=== PATIENT | female | born 1995 | race Caucasian/White ===

== ENCOUNTER → 2018-03-31 | Outpatient (REF) | payer OTHER | LOC: M LAB REF 13:50 | DX: Z12.4 Encounter for screening for malignant neoplasm of cervix (principal) ==

== ENCOUNTER → 2018-08-27 | Outpatient (REF) | payer OTHER ==
[2018-08-27 16:58] LABS: FREE T4 0.86 NG/DL (0.76-1.46); THYROID STIMULATING HORMONE 0.713 uIU/ML (0.358-3.740)
[2018-08-27 17:12] LABS: LUTEINIZING HORMONE 0.5 mIU/mL
[2018-08-27 17:13] LABS: ESTRADIOL 27.6 PG/ML; FOLLICLE STIMULATING HORMONE 5.3 mIU/mL
[2018-08-27 17:59] LABS: HCG, SERUM QUALITATIVE NEGATIVE (NEGATIVE)
[2018-08-27 18:16] LABS: CHLAMYDIA DNA AMPLIFICATION NEGATIVE (NEGATIVE); GC DNA AMPLIFICATION NEGATIVE (NEGATIVE)
[2018-08-28 10:35] LABS: HIV 1&2 SCREEN CENTAUR NEGATIVE (NEGATIVE)
== END ==
LOC: M SFHCLERA 10:20
PROVIDERS: ATTEND Family Medicine
DX: Z11.3 Encounter for screening for infections with a predominantly sexual mode of transmission (principal); N91.1 Secondary amenorrhea

== ENCOUNTER → 2019-06-29 | Outpatient (REF) | payer OTHER ==
[2019-06-29 12:46] LABS: FREE T4 0.88 NG/DL (0.76-1.46)
[2019-06-29 12:48] LABS: ESTRADIOL < 19.0 PG/ML; LUTEINIZING HORMONE 1.6 mIU/mL; PROLACTIN 7.6 NG/ML
[2019-06-29 12:49] LABS: FOLLICLE STIMULATING HORMONE 3.9 mIU/mL
== END ==
LOC: M SFHCLERA 10:02
PROVIDERS: ATTEND Family Medicine
DX: E55.9 Vitamin D deficiency, unspecified (principal); N91.2 Amenorrhea, unspecified

== ENCOUNTER → 2019-09-08 | Outpatient (CLI) | payer BC, OTHER | LOC: M LABSMTC 10:52 | PROVIDERS: ATTEND Family Medicine | DX: Z11.59 Encounter for screening for other viral diseases (principal); Z20.828 Contact with and (suspected) exposure to other viral communicable diseases ==

== ENCOUNTER → 2019-11-12 | Outpatient (REF) | payer OTHER ==
[2019-11-12 17:38] LABS: ESTRADIOL 26.2 PG/ML; FOLLICLE STIMULATING HORMONE 4.3 mIU/mL; FREE T4 1.06 NG/DL (0.76-1.46); LUTEINIZING HORMONE 1.9 mIU/mL; PROLACTIN 6.7 NG/ML; THYROID STIMULATING HORMONE 1.2 uIU/ML (0.358-3.740)
[2019-11-16 12:07] LABS: TESTOSTERONE FREE (DIRECT) 4.5 pg/mL (0.0-4.2); VITAMIN D 1,25 DIHYDROXY 69.3 pg/mL (19.9-79.3)
== END ==
LOC: M PLALAB 15:11
PROVIDERS: ATTEND Specialist
DX: N91.1 Secondary amenorrhea (principal)

== ENCOUNTER → 2024-08-13 | Outpatient (REF) | payer BC ==
[2024-08-13 20:21] LABS: Trichomonas vaginalis (AMP) NOT DETECTED (NEGATIVE)
[2024-08-13 20:44] LABS: GC DNA AMPLIFICATION NEGATIVE (NEGATIVE)
== END ==
LOC: M PLALAB 09:46
PROVIDERS: ATTEND Advanced Practice Midwife
DX: Z34.02 Encounter for supervision of normal first pregnancy, second trimester (principal)

== ENCOUNTER → 2024-09-10 | Outpatient (CLI) | payer BC | LOC: M PLALAB 08:55 | PROVIDERS: ATTEND Advanced Practice Midwife | DX: Z34.02 Encounter for supervision of normal first pregnancy, second trimester (principal) ==

== ENCOUNTER → 2024-09-21 | Outpatient (CLI) | payer BC | LOC: M WHC 10:03 | PROVIDERS: ATTEND Advanced Practice Midwife | DX: Z34.02 Encounter for supervision of normal first pregnancy, second trimester (principal) ==

== ENCOUNTER → 2024-12-24 | Outpatient (CLI) | payer BC | LOC: M WHC 08:18 | PROVIDERS: ATTEND Advanced Practice Midwife | DX: O43.192 Other malformation of placenta, second trimester (principal); Z3A.00 Weeks of gestation of pregnancy not specified ==

== ENCOUNTER → 2025-01-21 | Outpatient (REF) | payer BC | LOC: M SFHCWAGY 12:49 | PROVIDERS: ATTEND Advanced Practice Midwife | DX: Z34.03 Encounter for supervision of normal first pregnancy, third trimester (principal) ==